=== PATIENT | male | born 1980 | race American Indian/Alaskan Native ===

== ENCOUNTER 2016-10-30 14:24 | Emergency (ER) | payer OTHER ==
[2016-10-30 14:46] VITALS: PULSE 92
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
[2016-10-30 15:27] VITALS: BP 118/80; RESP 16; TEMP 98.3
[2016-10-30 16:22] VITALS: O2SAT 96
== END 2016-10-30 15:52 | disposition home or self-care (01) ==
LOC: C.ER 14:24
DX: S13.4XXA Sprain of ligaments of cervical spine, initial encounter (principal); V89.2XXA Person injured in unspecified motor-vehicle accident, traffic, initial encounter; M54.5 Low back pain